=== PATIENT | male | born 1965 | race Caucasian/White ===

== ENCOUNTER 2024-05-30 13:30 | Emergency (ER) | payer BC ==
[2024-05-30 14:05] LABS: BASO % 0.1 % (0.0-1.0); EOS # 0.1 10^3/uL (0.0-0.5); EOS % 0.9 % (0.0-3.0); HEMATOCRIT 42.3 % (42.0-52.0); HEMOGLOBIN 14.6 g/dl (13.5-17.5); LYMPH # 2.1 10^3/uL (1.5-5.0); LYMPH % 31.2 % (24.0-44.0); MEAN CORPUSCULAR HEMOGLOBIN 30.5 pg (27.0-33.0); MEAN CORPUSCULAR HGB CONC 34.5 g/dl (32.0-36.5); MEAN CORPUSCULAR VOLUME 88.5 fl (80.0-96.0); MONO # 0.6 10^3/uL (0.0-0.8); MONO % 9.4 % (2.0-8.0); NEUTROPHILS # 3.9 10^3/uL (1.5-8.5); PLATELET COUNT, AUTOMATED 174 10^3/uL (150-450); RED BLOOD COUNT 4.78 10^6/uL (4.30-6.10); WHITE BLOOD COUNT 6.8 10^3/uL (4.0-10.0)
[2024-05-30] MEDS: SUCRALFATE 1 GM TAB PO ONE (14:16)
[2024-05-30] MEDS: ASPIRIN 81MG CHEW TABLET PO ONE (14:17)
[2024-05-30] MEDS: PANTOPRAZOLE 40MG VIAL IV ONE (14:17)
[2024-05-30 14:42] LABS: LIPASE 40 U/L (12-53)
[2024-05-30 14:44] LABS: ALBUMIN 3.7 G/DL (3.2-5.2); ALKALINE PHOSPHATASE 76 U/L (40-129); ALT/SGPT 35 U/L (7.0-40); AST/SGOT 24 U/L (<34); BILIRUBIN,DIRECT < 0.1 MG/DL (<0.4); BILIRUBIN,TOTAL 0.3 MG/DL (0.3-1.2); BLOOD UREA NITROGEN 23 MG/DL (9-23); CARBON DIOXIDE LEVEL 25 MMOL/L (20-31); CHLORIDE LEVEL 105 MMOL/L (98-107); CREATININE FOR GFR 1.01 MG/DL (0.70-1.30); GLOMERULAR FILTRATION RATE 84.6 (>49); GLUCOSE, FASTING 102 MG/DL (74-106); POTASSIUM SERUM 4.5 MMOL/L (3.5-5.1); SODIUM LEVEL 141 MMOL/L (136-145); TOTAL PROTEIN 7.2 G/DL (5.7-8.2)
[2024-05-30 14:45] LABS: THYROID STIMULATING HORMONE 1.038 uIU/ML (0.55-4.78)
[2024-05-30 14:51] LABS: CPK CREATINE PHOSPHOKINASE 287 U/L (46-171); MB/CK RELATIVE INDEX 1.04 (< OR =4)
[2024-05-30 15:51] LABS: CK-MB VALUE MASS 2.9 NG/ML (<3.6)
[2024-05-30 15:55] LABS: MB/CK RELATIVE INDEX 0.99 (< OR =4)
[2024-05-30] MEDS ORDERED: PROT1TAB2 PO (16:11)
[2024-05-30] MEDS ORDERED: CARA1TAB6 PO (16:11)
[2024-05-30] MEDS ORDERED: ASPI81TA26 PO (16:11)
[2024-05-30 18:00] VITALS: BP 146/76; TEMP 98.2; O2SAT 96
== END 2024-05-30 18:05 | disposition home or self-care (01) ==
LOC: M ED 13:30
DX: R07.9 Chest pain, unspecified (principal); E78.5 Hyperlipidemia, unspecified; F10.10 Alcohol abuse, uncomplicated; Z79.1 Long term (current) use of non-steroidal anti-inflammatories (NSAID); Z79.899 Other long term (current) drug therapy
CPT/HCPCS: 71045; 80048; 80076; 82550; 82553; 83690; 84443; 84484; 85025; 93005; 93041; 94760; 96374; 99285; J2470